=== PATIENT | male | born 1945 | race Caucasian/White ===

== ENCOUNTER 2022-06-11 10:05 | Day surgery (SDC) | payer MEDICARE, OTHER ==
[2022-06-11] VITALS (9 sets, daily range): BP systolic 134–152; BP diastolic 63–80; PULSE 48–81; TEMP 97.3–98.5
[~2022-06-11] VITALS: Ht 188 cm; Wt 109.3 kg
[2022-06-11] MEDS ORDERED: LIPITOR20 MG PO (11:21)
[2022-06-11] MEDS ORDERED: FOLIC ACID 11 MG/TA1 PO (11:22)
[2022-06-11] MEDS ORDERED: GLUCOPHAGE1000 MG PO (11:23)
[2022-06-11] MEDS ORDERED: LOPRESSOR 550 MG/TAB PO (11:23)
[2022-06-11] MEDS ORDERED: MIRALAX PA17 GM/Dose PO (11:24)
[2022-06-11] MEDS ORDERED: K-DUR20 MEQ PO (11:25)
[2022-06-11] MEDS ORDERED: ZOLOFT 50MG50 MG PO (11:26)
[2022-06-11] MEDS ORDERED: FLOMAX 0.40.4 MG/CAP PO (11:26)
[2022-06-11] MEDS ORDERED: ASPIRIN E.C. 8181 MG PO (11:27)
[2022-06-11] MEDS ORDERED: STOOL SOFTENER100 M2 PO (11:28)
[2022-06-11] MEDS ORDERED: CIPRO 500MG TA500 MG PO (11:28)
[2022-06-11] MEDS ORDERED: CULTURELLE1 EAC1 PO (11:29)
[2022-06-11] MEDS ORDERED: PEPCID 20MG TAB20 MG PO (11:30)
[2022-06-11] MEDS ORDERED: LASIX 20MG TABL20 MG PO (11:32)
[2022-06-11] MEDS ORDERED: COZAAR100 MG PO (11:33)
[2022-06-11] MEDS ORDERED: TYLENOL 500MG500 MG PO (11:34)
[2022-06-11] MEDS ORDERED: PYRIDIUM 100MG100 MG PO (12:46)
--- NOTE | 2022-06-11 13:15 | NUR ---
Pt. arrived to the floor from the PACU. Pt. is A&OX3. Post op vitals stable. Sullivan catheter with CBI running, urine is light pink at this time. Pt. denies pain or other needs, call light within reach.
--- NOTE | 2022-06-11 19:14 | NUR ---
RECEIVED CHANGE OF SHIFT REPORT FROM DAY SHIFT RN.
[2022-06-12 00:44] VITALS: BP 127/58; PULSE 61; TEMP 98.7
[2022-06-12 04:27] VITALS: BP 146/82; PULSE 62; TEMP 99
--- NOTE | 2022-06-12 07:18 | NUR ---
CHANGE OF SHIFT REPORT GIVEN TO DAY SHIFT RNHAJA.
[2022-06-12 08:00] VITALS: BP 150/76; PULSE 58; TEMP 98.2
--- NOTE | 2022-06-12 08:00 | NUR ---
PATIENT IS ORIENTED TO SELF, VERY FORGETFUL WITH OCCATIONAL CONFUSION NOTED. HX OF DEMENTIA AND PATIENT LIVES IN [place]. VSS. NO C/O PAIN OR N/V. LEFT HAND IV TO INT. OAKLEY DC'D PER UROLOGY. PRIMED WITH 1000CC AND PULLED PER UROLOGIST INSTRUCTIONS. PATIENT STARTING 6 CUP ROUTINE AND IS VOIDING USING URINAL IMMEDIATELY AFTER OAKLEY WAS REMOVED. HEAD TO TOE ASSESSMENT COMPLETE. AM MEDS GIVEN. BREAKFAST TRAY ORDERED.
--- NOTE | 2022-06-12 10:00 | NUR ---
PATIENT HAS SET OFF BED AND CHAIR ALARM SEVERAL TIMES THIS AM, EACH TIME IS WHEN HE NEEDS TO VOID. PATIENT CAN NOT SEEM TO REMEMBER TO CALL FOR ASSISTANCE EVEN AFTER EDUCATION. [employer] WORKING ON TRANSFER BACK TO [place], APPROX 1.5 HOURS AWAY.
--- NOTE | 2022-06-12 10:22 | NUR ---
Initial visit; Patient thanked Cryptologic Linguist for stopping and states he lived in [facility] and liked living there. He thanked Cryptologic Linguist for offering God's blessings.
[2022-06-12 11:45] VITALS: BP 160/87; PULSE 54; TEMP 97.5
--- NOTE | 2022-06-12 12:55 | NUR ---
SNF CAN NOT BE HERE TILL [id number]. PATIENT TRANSFERED INTO ROOM ACCROSS FROM NURSES STATION DUE TO HX OF DEMENTIA AND HIGH RISK FOR FALLS. PATIENT KEEPS SETTING OFF CHAIR ALARM WHEN HE NEEDS TO VOID.
--- NOTE | 2022-06-12 13:24 | NUR ---
The patient resides at [facility] in long-term care in [place], [place]. The patient's attending is ready to discharge him today. MAYRA notified Magaly at [facility]. Magaly confirms he is their resident and that they can pick him up later this afternoon. Magaly provides that Carl Colón is the patient's DPOA-HC. MAYRA contacted Carl to review discharge plan. Carl confirms the plan for the patient to return back to [facility] today. MAYRA updated the RN. No additional needs at this time.
--- NOTE | 2022-06-12 15:15 | NUR ---
[facility] HERE TO ACID CORRECTION HAND PATIENT. GAVE DISCHARGE INFO PACKET TO MANAGER GOLF WITH FOLLOW UP APT. DC'D IV AND COVERED SITE WITH [employer]. PATIENT DRESSED, PACKED, AND ESCORTED OUT WITH [facility] MANAGER GOLF.
== END 2022-06-12 15:15 | disposition home or self-care (01) ==
LOC: SDCO 10:05 → SURG 13:20 → SDCO 06-12 15:15
DX: N40.1 Benign prostatic hyperplasia with lower urinary tract symptoms (principal); R39.14 Feeling of incomplete bladder emptying; R33.8 Other retention of urine; R39.12 Poor urinary stream; R35.1 Nocturia
CPT/HCPCS: OP; J2704; J7120